=== PATIENT | female | born 1930 | race Caucasian/White ===

== ENCOUNTER 2017-12-07 13:43 | Emergency (ER) | payer OTHER ==
[~2017-12-07] VITALS: Ht 157.5 cm; Wt 86.6 kg
[2017-12-07 16:28] VITALS: BP 156/89
[2017-12-14] MEDS ORDERED: WARPRX PO (15:53)
[2017-12-15] MEDS ORDERED: WARF1TAB PO (10:51)
== END 2017-12-07 16:28 | disposition home or self-care (01) ==
LOC: ER 13:43
DX: M79.604 Pain in right leg (principal); I48.91 Unspecified atrial fibrillation; I10 Essential (primary) hypertension; E11.9 Type 2 diabetes mellitus without complications; E78.5 Hyperlipidemia, unspecified; I25.2 Old myocardial infarction; Z90.49 Acquired absence of other specified parts of digestive tract
CPT/HCPCS: 93005; 93971

== ENCOUNTER 2017-12-13 10:56 | Inpatient (IN) | payer OTHER ==
[~2017-12-13] VITALS: Ht 157.5 cm; Wt 84.7 kg
[2017-12-13 12:04] LABS: Basophils # (auto) 0.1 uL; Basophils % (auto) 0.7 % (0.0-2.0); Eosinophils # (auto) 0 uL; Eosinophils % (auto) 0.2 % (0.0-7.0); Hematocrit 36.5 % (36.0-46.0); Hemoglobin 12.1 g/dL (12.2-16.2); Lymphocytes # (auto) 0.7 uL; Lymphocytes % (auto) 7.1 % (10.0-50.0); Mean Corpuscular Hemoglobin 30.4 pg (28.0-32.0); Mean Corpuscular Hgb Conc. 33.2 g/dL (32.0-36.0); Mean Corpuscular Volume 91.4 fL (80.0-100.0); Monocytes # (auto) 0.4 uL; Monocytes % (auto) 4.7 % (0.0-12.0); Neutrophils # (auto) 8.1 uL; Neutrophils % (auto) 87.3 % (37.0-80.0); Nucleated Red Blood Cells % 0.1 %; Platelet Count (auto) 303 10^3/uL (140-450); Red Blood Cells 3.99 10^6/uL (4.0-5.20); Red Cell Distribution Width 13.2 % (11.8-14.3); White Blood Cell 9.3 10^3/uL (4.4-10.8)
[2017-12-13 12:23] LABS: Partial Thromboplastin Time 57.2 sec (22.64-33.71); Prothrombin Time 57.8 sec (9.37-12.3)
[2017-12-13 12:25] LABS: Alanine Aminotransferase 22 U/L (13-56); Albumin 2.4 g/dL (3.4-5.0); Alkaline Phosphatase 124 U/L (45-117); Anion Gap 8 (5-15); Aspartate Aminotransferase 19 U/L (15-37); Bilirubin, Total 0.7 mg/dL (0.2-1.0); Blood Urea Nitrogen 19 mg/dL (7-18); Calcium 9.2 mg/dL (8.5-10.1); Carbon Dioxide 30 mmol/L (21-32); Chloride 97 mmol/L (98-107); GFR African American 71 mL/min; GFR Non-African American 59 mL/min; Glucose 246 mg/dL (74-106); Magnesium 1.6 mg/dL (1.6-2.6); Potassium 3.3 mmol/L (3.5-5.1); Sodium 135 mmol/L (136-145); Total Protein 6.5 g/dL (6.4-8.2)
[2017-12-13 12:39] LABS: INR 5.22 (0.9-1.15)
[2017-12-13] MEDS ORDERED: LISI-275 PO (12:50)
[2017-12-13] MEDS ORDERED: GLIP-115 PO (12:50)
[2017-12-13 14:07] LABS: Urine Bacteria NONE SEEN /hpf (None Seen); Urine Blood Negative /uL (Negative); Urine Mucus FEW (None Seen); Urine Specific Gravity 1.016 (1.001-1.035); Urine WBC 2 /hpf (0 - 5)
[2017-12-13] MEDS ORDERED: MORPHINE SULF INJ 2 MG/ML SYRINGE 1ML IV PRN ×2 (15:45)
[2017-12-13] MEDS ORDERED: ONDANSETRON HCL 4 MG/2 ML VIAL IV PRN (15:45)
[2017-12-13] MEDS ORDERED: HYDROcodone-ACET 5/325MG TAB PO PRN (15:45)
[2017-12-13] MEDS ORDERED: LORazepam 2MG/ML-1ML VIAL IV ONE (15:45)
[2017-12-13] MEDS ORDERED: MECLIZINE HCL 25 MG TAB PO PRN (15:45)
[2017-12-13] MEDS ORDERED: NITROGLYCERIN 0.4 MG SL TAB SL PRN (15:45)
[2017-12-13] MEDS ORDERED: DEXTROSE (50%) 50ML SYRG IV PRN (15:45)
[2017-12-13] MEDS ORDERED: LORazepam 2MG/ML-1ML VIAL IV PRN (16:15)
[2017-12-13] MEDS: ACCU-CHEK COMFORT CURVE STRIP VI SCH ×2 (17:10→23:18)
[2017-12-13] MEDS: InsuLIN REG 1unit/0.01ml Soln (100units/ml) SC SCH ×2 (17:23→23:20)
[2017-12-13 20:35] VITALS: BP 124/65
[2017-12-13 22:00] VITALS: BP 124/65
[2017-12-13] MEDS ORDERED: ATORVASTATIN 20 MG TAB PO SCH (22:00)
[2017-12-13 23:00] VITALS: BP 124/65
[2017-12-14 05:00] VITALS: BP 108/51
[2017-12-14 05:39] LABS: INR 3.51 (0.9-1.15); Partial Thromboplastin Time 54.6 sec (22.64-33.71); Prothrombin Time 38.8 sec (9.37-12.3)
[2017-12-14 05:58] LABS: BUN/Creatinine Ratio 21.6; Calcium 9.8 mg/dL (8.5-10.1); Potassium 3.3 mmol/L (3.5-5.1)
[2017-12-14] MEDS: ACCU-CHEK COMFORT CURVE STRIP VI SCH ×3 (06:56→16:52)
[2017-12-14] MEDS: InsuLIN REG 1unit/0.01ml Soln (100units/ml) SC SCH ×3 (06:56→16:51)
[2017-12-14 08:49] VITALS: BP 145/76
[2017-12-14] MEDS ORDERED: LORazepam 2MG/ML-1ML VIAL IV PRN (10:00)
[2017-12-14] MEDS ORDERED: PANTOPRAZOLE 40 MG TAB PO SCH (10:00)
[2017-12-14 12:57] VITALS: BP 129/66
[2017-12-14] MEDS ORDERED: POTASSIUM CHL 10% (20 MEQ/15ML) 15ml ORAL SOLN PO ONE (15:15)
[2017-12-14] MEDS ORDERED: WARPRX PO ×2 (15:53)
[2017-12-14 16:12] VITALS: BP 132/77
[2017-12-14 17:19] VITALS: BP 132/77
[2017-12-15] MEDS ORDERED: WARF1TAB PO ×2 (10:51)
== END 2017-12-14 18:18 | disposition home health service (06) | DRG 917 ==
LOC: ER 10:56 → EDBD 10:56 → TELE 10:57 → TELE-WESTW 22:06
PROVIDERS: ADMIT Internal Medicine; ATTEND Internal Medicine
DX: T45.511A Poisoning by anticoagulants, accidental (unintentional), initial encounter (principal); E43 Unspecified severe protein-calorie malnutrition; D68.69 Other thrombophilia; I48.91 Unspecified atrial fibrillation; E11.9 Type 2 diabetes mellitus without complications; I11.9 Hypertensive heart disease without heart failure; R42 Dizziness and giddiness; E66.9 Obesity, unspecified; Z68.34 Body mass index [BMI] 34.0-34.9, adult; Z88.0 Allergy status to penicillin; Z88.8 Allergy status to other drugs, medicaments and biological substances; E78.5 Hyperlipidemia, unspecified; H53.2 Diplopia; Y92.89 Other specified places as the place of occurrence of the external cause; I70.0 Atherosclerosis of aorta; R29.700 NIHSS score 0; Z79.01 Long term (current) use of anticoagulants; Z82.49 Family history of ischemic heart disease and other diseases of the circulatory system
CPT/HCPCS: 36415; 70450; 70551; 71045; 80048; 80053; 80061; 81001; 82962; 83036; 83735; 84443; 84484; 85025; 85610; 85730; 93005; 93306; 93886; 94761; 96374; 97163; J1815

== ENCOUNTER 2017-12-14 20:28 | Inpatient (IN) | payer OTHER ==
[~2017-12-14] VITALS: Ht 157.5 cm; Wt 83.5 kg
[~2017-12-14 20:28] MED LIST: GLIP-115 PO; LISI-275 PO; WARPRX PO
[2017-12-14 21:06] LABS: Basophils # (auto) 0.1 uL; Basophils % (auto) 1.1 % (0.0-2.0); Eosinophils # (auto) 0 uL; Eosinophils % (auto) 0.5 % (0.0-7.0); Hematocrit 37.5 % (36.0-46.0); Hemoglobin 12.4 g/dL (12.2-16.2); Lymphocytes # (auto) 1.2 uL; Lymphocytes % (auto) 11.7 % (10.0-50.0); Mean Corpuscular Volume 90.7 fL (80.0-100.0); Monocytes # (auto) 0.9 uL; Monocytes % (auto) 8.2 % (0.0-12.0); Neutrophils # (auto) 8.2 uL; Neutrophils % (auto) 78.5 % (37.0-80.0); Platelet Count (auto) 357 10^3/uL (140-450); Red Blood Cells 4.13 10^6/uL (4.0-5.20); Red Cell Distribution Width 13.5 % (11.8-14.3); White Blood Cell 10.4 10^3/uL (4.4-10.8)
[2017-12-14 21:26] LABS: Alanine Aminotransferase 23 U/L (13-56); Albumin 2.6 g/dL (3.4-5.0); Alkaline Phosphatase 130 U/L (45-117); Anion Gap 6 (5-15); Aspartate Aminotransferase 24 U/L (15-37); BUN/Creatinine Ratio 19.6; Bilirubin, Total 0.6 mg/dL (0.2-1.0); Blood Urea Nitrogen 22 mg/dL (7-18); Calcium 9.6 mg/dL (8.5-10.1); Carbon Dioxide 34 mmol/L (21-32); Chloride 98 mmol/L (98-107); GFR African American 59 mL/min; GFR Non-African American 49 mL/min; Glucose 157 mg/dL (74-106); Potassium 3.9 mmol/L (3.5-5.1); Sodium 138 mmol/L (136-145); Total Protein 6.9 g/dL (6.4-8.2)
[2017-12-14] MEDS ORDERED: TEMAZEPAM 15 MG CAP ONE (22:54)
[2017-12-14] MEDS ORDERED: TEMAZEPAM 15 MG CAP PO ONE (23:00)
[2017-12-15] MEDS ORDERED: ACETAMINOPHEN 500 MG TAB PO PRN (00:30)
[2017-12-15] MEDS ORDERED: HYDROcodone-ACET 5/325MG TAB PO PRN (00:30)
[2017-12-15] MEDS ORDERED: ONDANSETRON HCL 4 MG/2 ML VIAL IV PRN (00:30)
[2017-12-15 01:10] VITALS: BP 166/84
[2017-12-15 04:59] VITALS: BP 148/88
[2017-12-15 05:00] VITALS: BP 148/88
[2017-12-15 06:25] LABS: Basophils # (auto) 0.1 uL; Basophils % (auto) 0.7 % (0.0-2.0); Eosinophils # (auto) 0.1 uL; Eosinophils % (auto) 0.7 % (0.0-7.0); Hematocrit 35.6 % (36.0-46.0); Hemoglobin 11.7 g/dL (12.2-16.2); Lymphocytes # (auto) 1.2 uL; Mean Corpuscular Hemoglobin 29.9 pg (28.0-32.0); Mean Corpuscular Volume 90.7 fL (80.0-100.0); Monocytes # (auto) 0.7 uL; Monocytes % (auto) 7.9 % (0.0-12.0); Neutrophils # (auto) 6.6 uL; Neutrophils % (auto) 76.7 % (37.0-80.0); Platelet Count (auto) 287 10^3/uL (140-450); Red Blood Cells 3.92 10^6/uL (4.0-5.20); Red Cell Distribution Width 13.5 % (11.8-14.3); White Blood Cell 8.5 10^3/uL (4.4-10.8)
[2017-12-15 06:38] LABS: INR 2.27 (0.9-1.15); Partial Thromboplastin Time 44.2 sec (22.64-33.71)
[2017-12-15] MEDS ORDERED: glipiZIDE 5 MG TAB PO SCH (07:00)
[2017-12-15 07:02] LABS: Albumin 2.3 g/dL (3.4-5.0); BUN/Creatinine Ratio 22.7; Bilirubin, Total 0.7 mg/dL (0.2-1.0); Calcium 9.4 mg/dL (8.5-10.1); Potassium 3.6 mmol/L (3.5-5.1); Total Protein 6.2 g/dL (6.4-8.2)
[2017-12-15 08:00] VITALS: BP 148/81
[2017-12-15 09:00] VITALS: BP 148/81
[2017-12-15] MEDS ORDERED: LISINOPRIL 5 MG TAB PO SCH (10:00)
[2017-12-15] MEDS ORDERED: WARF1TAB PO ×2 (10:51)
[2017-12-15 11:16] VITALS: BP 148/81
[2017-12-15] MEDS ORDERED: WARFARIN SODIUM 1 MG TAB PO ONE (17:00)
== END 2017-12-15 14:33 | disposition home health service (06) | DRG 149 ==
LOC: EDBD 20:28 → ER 20:36 → WEST WING 20:37 → TELE-WESTW 12-15 00:36
PROVIDERS: ADMIT Nurse Practitioner Family; ATTEND Internal Medicine
DX: R42 Dizziness and giddiness (principal); E43 Unspecified severe protein-calorie malnutrition; I48.91 Unspecified atrial fibrillation; E11.9 Type 2 diabetes mellitus without complications; D68.69 Other thrombophilia; I10 Essential (primary) hypertension; E78.5 Hyperlipidemia, unspecified; H53.2 Diplopia; M10.9 Gout, unspecified; Z79.01 Long term (current) use of anticoagulants; Z79.84 Long term (current) use of oral hypoglycemic drugs; Z79.899 Other long term (current) drug therapy; Z82.49 Family history of ischemic heart disease and other diseases of the circulatory system; Z91.81 History of falling; Z90.49 Acquired absence of other specified parts of digestive tract; I25.2 Old myocardial infarction; Z88.1 Allergy status to other antibiotic agents; Z88.0 Allergy status to penicillin
CPT/HCPCS: 36415; 70450; 80053; 82962; 84484; 85025; 85610; 85730; 87081; 97116; 97530